=== PATIENT | male | born 1980 | race Asian ===

== ENCOUNTER 2020-10-09 19:15 | Emergency (ER) | payer SELFPAY ==
[~2020-10-09] VITALS: Ht 167.6 cm; Wt 68.9 kg
[2020-10-09 19:22] VITALS: BP 127/76
== END 2020-10-09 19:57 | disposition left against medical advice (07) ==
LOC: EDBD 19:15 → ER 19:15
DX: F41.9 Anxiety disorder, unspecified (principal); Z53.21 Procedure and treatment not carried out due to patient leaving prior to being seen by health care provider